=== PATIENT | female | born 1995 | race Caucasian/White ===

== ENCOUNTER 2021-07-13 14:30 | Emergency (ER) | payer OTHER ==
[2021-07-13] MEDS ORDERED: Ondansetron 4 MG Tab.DIS PO ONE (16:56)
--- NOTE | 2021-07-13 17:01 | EDM.PDOC ---
ED HPI GENERAL MEDICAL PROBLEM - General Chief Complaint: Gastrointestinal Problem Stated Complaint: COVID SYMPTOMS Time Seen by Provider: 07/13/21 16:07 Source of Information: Reports: Patient History Limitations: Reports: No Limitations - History of Present Illness INITIAL COMMENTS - FREE TEXT/NARRATIVE: 25-year-old female presents the emergency department today with complaints of 4- day history of fever, chills, nausea, vomiting, body aches, mild nonproductive cough and diarrhea. Patient states she has not taken any Tylenol or ibuprofen for the body aches. Denies any shortness of breath, chest pain or dyspnea. She has not had her Covid vaccine. States she smokes half pack a day for the past 15 years. - Related Data Allergies Allergy/AdvReac Type Severity Reaction Status Date / Time amoxicillin Allergy Hives Verified 07/13/21 17:03 hydrocodone Allergy Itching Verified 07/13/21 17:03 sulfamethoxazole Allergy Irritabilit Verified 07/13/21 17:03 [From Bactrim] y trimethoprim [From Bactrim] Allergy Irritabilit Verified 07/13/21 17:03 y Home Meds: Home Meds Ondansetron [Zofran ODT] 4 mg PO Q6H PRN #12 tab.dis 07/13/21 [Rx] Past Medical History Gastrointestinal History: Reports: GERD - Past Surgical History GI Surgical History: Reports: Other (See Below) Other GI Surgeries/Procedures: "Stretching" of her throat Female Surgical History: Reports: Breast Biopsy, Other (See Below) Other Female Surgeries/Procedures: Right Breast Lumpectomy Social & Family History - Tobacco Use Tobacco Use Status *Q: Current Every Day Tobacco User Years of Tobacco use: 8 Packs/Tins Daily: 3 - Caffeine Use Caffeine Use: Reports: None - Recreational Drug Use Recreational Drug Use: No ED ROS GENERAL - Review of Systems Review Of Systems: Comprehensive ROS is negative, except as noted in HPI. ED EXAM, GI/ABD - Physical Exam Exam: See Below Exam Limited By: No Limitations General Appearance: Alert, WD/WN, No Apparent Distress Eyes: Bilateral: Normal Appearance Ears: Normal External Exam, Hearing Grossly Normal Nose: Normal Inspection Throat/Mouth: Normal Inspection, Normal Lips, Normal Voice, No Airway Compromise Head: Atraumatic Neck: Normal Inspection, Supple Respiratory/Chest: No Respiratory Distress, Normal Breath Sounds, No Accessory Muscle Use, Chest Non-Tender, Crackles (Crackles noted to the right posterior lower lobe) Cardiovascular: Normal Peripheral Pulses, Regular Rate, Rhythm, No Edema, No Murmur GI/Abdominal Exam: Normal Bowel Sounds, Soft, Non-Tender, No Distention (Female) Exam: Deferred Rectal (Female) Exam: Deferred Back Exam: Normal Inspection Extremities: Normal Inspection, Normal Range of Motion, Non-Tender, No Pedal Edema, Normal Capillary Refill Neurological: Alert, Oriented, Normal Cognition Psychiatric: Normal Affect, Normal Mood Skin Exam: Warm, Dry, Intact, Normal Color, No Rash Lymphatic: No Adenopathy Course - Vital Signs Text/Narrative:: Physical exam reveals fine crackles noted to the right lower lobe. Patient is gagging into her emesis bag however she has not actively vomiting. Discussed p brittaney with patient she is likely positive for Covid. She states that she does not want to have any needle pokes unless her boyfriend can be in the room with her however I told her that this is not a possibility due to the fact that she is being tested for Covid. So she is refusing all further treatment. Will medicate her with Zofran ODT and once we have Covid results back she will be discharged home. Last Recorded V/S: Last Vital Signs Temp 98.9 F 07/13/21 16:20 Pulse 74 07/13/21 16:20 Resp 20 07/13/21 16:20 BP 93/74 07/13/21 16:20 Pulse Ox 100 07/13/21 16:20 - Orders/Labs/Meds Orders: Active Orders 24 hr Category Date Time Status C-REACTIVE PROTEIN [CHEM] Stat Lab 07/13/21 17:27 Ordered CBC WITH AUTO DIFF [HEME] Stat Lab 07/13/21 17:27 Ordered COMPREHENSIVE METABOLIC PN,CMP [CHEM] Stat Lab 07/13/21 17:27 Ordered D-DIMER QUANTITATIVE [COAG] Stat Lab 07/13/21 17:27 Ordered HCG QUANTITATIVE [CHEM] Stat Lab 07/13/21 17:29 Ordered MAGNESIUM [CHEM] Stat Lab 07/13/21 17:27 Ordered Sodium Chloride 0.9% [Saline Flush] Med 07/13/21 17:27 Active 10 ml FLUSH ASDIRECTED PRN Saline Lock Insert [OM.PC] Stat Oth 07/13/21 17:27 Ordered Medication Orders Sodium Chloride (Sodium Chloride 0.9% 10 Ml Syringe) 10 ml FLUSH ASDIRECTED PRN PRN Reason: Keep Vein Open Labs: Laboratory Tests 07/13/21 Range/Units 16:19 Influenza Type A RNA Negative (NEGATIVE) Influenza Type B RNA Negative (NEGATIVE) SARS-CoV-2 RNA ([facility]) Positive H (NEGATIVE) Meds: Medications Generic Name Dose Route Start Last Admin Trade Name Freq PRN Reason Stop Dose Admin Sodium Chloride 10 ml 07/13/21 17:27 Sodium Chloride 0.9% 10 Ml Syringe FLUSH ASDIRECTED PRN Keep Vein Open Discontinued Medications Generic Name Dose Route Start Last Admin Trade Name Freq PRN Reason Stop Dose Admin Ondansetron HCl 4 mg 07/13/21 16:56 07/13/21 17:03 Ondansetron 4 Mg Tab.Dis PO 07/13/21 16:57 4 mg ONETIME ONE Administration - Re-Assessments/Exams Free Text/Narrative Re-Assessment/Exam: 07/13/21 17:23 Patient's Covid test is positive. She will be discharged home with recommendations that she isolate for 10 days time. 07/13/21 17:26 Patient states she has changed her mind and would like to receive antibody treatment. Will collect labs. I spoke with the patient to provide information about Bamlanivimad for herself. I offered her the fax sheet for patients and caregivers for Bamlanivimad to read and review. I stated the therapy has been approved by an emergency use authorization process and has not fully been FDA reviewed or approved. I shared the potential risks from the therapy including risks/adverse reactions. I discussed there are other potential treatment options that are currently not FDA approved to treat COVID-19. Offered opportunity ask questions and all questions were answered. Patient voiced understanding and agreed to proceed with treatment for herself. 07/13/21 18:14 Nursing staff was unable to start an IV on the patient after 2 IV attempts. Patient is refusing any further IV attempts or lab draws. She request to be discharged home. Departure - Departure Time of Disposition: 18:14 Disposition: Home, Self-Care 01 Condition: Good Clinical Impression: COVID-19 - Discharge Information Prescriptions: Ondansetron [Zofran ODT] 4 mg PO Q6H PRN #12 tab.dis PRN Reason: Nausea/Vomiting Instructions: COVID-19: Quarantine vs. Isolation - [facility] (08/02/2020) Referrals: PCP,None [Primary Care Provider] - Forms: ED Department Discharge Additional Instructions: Were tested for Covid today and the test did return positive. Offered monoclonal antibodies however opted to decline due to fear of needle sticks and nursing staff being unsuccessful starting your IV. Recommend that you go home and rest and drink plenty of fluids. Eat small frequent meals. I have sent prescription for nausea medication called [place]. You may take this medication 1 tab placed under your tongue every 6 hours as needed for nausea and vomiting. Please allow 30 minutes prior to eating or drinking to allow the medication to take full effect. Sepsis Event Note (ED) - Evaluation Sepsis Screening Result: No Definite Risk - Focused Exam Vital Signs: Vital Signs Temp Pulse Resp BP Pulse Ox 07/13/21 16:20 98.9 F 74 20 93/74 100 - My Orders Last 24 Hours: My Active Orders 07/13/21 17:27 C-REACTIVE PROTEIN [CHEM] Stat CBC WITH AUTO DIFF [HEME] Stat COMPREHENSIVE METABOLIC PN,CMP [CHEM] Stat D-DIMER QUANTITATIVE [COAG] Stat MAGNESIUM [CHEM] Stat Sodium Chloride 0.9% [Saline Flush] 10 ml FLUSH ASDIRECTED PRN Saline Lock Insert [OM.PC] Stat 07/13/21 17:29 HCG QUANTITATIVE [CHEM] Stat - Assessment/Plan Last 24 Hours: My Active Orders 07/13/21 17:27 C-REACTIVE PROTEIN [CHEM] Stat CBC WITH AUTO DIFF [HEME] Stat COMPREHENSIVE METABOLIC PN,CMP [CHEM] Stat D-DIMER QUANTITATIVE [COAG] Stat MAGNESIUM [CHEM] Stat Sodium Chloride 0.9% [Saline Flush] 10 ml FLUSH ASDIRECTED PRN Saline Lock Insert [OM.PC] Stat 07/13/21 17:29 HCG QUANTITATIVE [CHEM] Stat
[2021-07-13 17:09] LABS: CORONAVIRUS COVID-19 NAA POSITIVE (NEGATIVE)
[2021-07-13] MEDS ORDERED: Sodium Chloride 0.9% 10 ML Syringe FLUSH PRN (17:27)
== END 2021-07-13 18:30 | disposition home or self-care (01) ==
LOC: JD.ED 14:30
DX: U07.1 COVID-19 (principal); Z72.0 Tobacco use; Z88.0 Allergy status to penicillin; Z88.5 Allergy status to narcotic agent; Z88.2 Allergy status to sulfonamides
CPT/HCPCS: 0240U; 99284; A9270

== ENCOUNTER 2022-08-29 06:54 | Day surgery (SDC) | payer BC, OTHER ==
[~2022-08-29 06:54] MED LIST: Lactated Ringers 1,000 ML IV SCH; Lidocaine 1%/Sod Bicarbonate in NS 8.4% 1 ML Syringe IDERM PRN; Sodium Chloride 0.9% 10 ML Syringe FLUSH SCH
[2022-08-29] MEDS ORDERED: Lidocaine 1% 30 ML SDV ONE (07:18)
[2022-08-29] MEDS ORDERED: Doxycycline Monohydrate 100 MG Cap PO SCH (07:30)
[2022-08-29] MEDS ORDERED: Propofol 200 MG/20 ML SDV ONE (07:36)
[2022-08-29] MEDS ORDERED: fentaNYL 100 MCG/2 ML SDV ONE (07:37)
[2022-08-29] MEDS ORDERED: Midazolam 1 MG/ML 2 ML SDV ONE (07:37)
[2022-08-29] MEDS ORDERED: Ondansetron 4 MG/2 ML SDV ONE (07:59)
[2022-08-29] MEDS ORDERED: Ketorolac 30 MG/ML SDV ONE (08:11)
[2022-08-29] MEDS ORDERED: Acetaminophen/Codeine 300-30 MG Tab PO SCH (08:30)
[2022-08-29] MEDS ORDERED: HYDROmorphone 0.5 MG/0.5 ML Syringe ONE (08:33)
== END 2022-08-29 10:05 | disposition home or self-care (01) ==
LOC: JD.SDS 06:54
PROVIDERS: ATTEND Obstetrics & Gynecology
DX: O73.1 Retained portions of placenta and membranes, without hemorrhage (principal); O02.1 Missed abortion; K21.9 Gastro-esophageal reflux disease without esophagitis; Z88.0 Allergy status to penicillin; Z88.2 Allergy status to sulfonamides; Z88.5 Allergy status to narcotic agent; Z88.7 Allergy status to serum and vaccine; Z87.891 Personal history of nicotine dependence; Z79.899 Other long term (current) drug therapy
CPT/HCPCS: 36415; 59820; 86850; 86900; 86901; A9270; J1170; J1885; J2250; J2405; J2704; J3010; J7120; 01965; J3490

== ENCOUNTER 2022-10-17 09:50 | Day surgery (SDC) | payer BC, MEDICAID ==
[~2022-10-17 09:50] MED LIST changes: +Sodium Chloride 0.9% 10 ML Syringe FLUSH PRN
[2022-10-17] MEDS ORDERED: Propofol 200 MG/20 ML SDV ONE (10:23)
[2022-10-17] MEDS ORDERED: Midazolam 1 MG/ML 2 ML SDV ONE (10:23)
[2022-10-17] MEDS ORDERED: Lidocaine 1% 5 ML VIAL ONE (10:23)
[2022-10-17] MEDS ORDERED: fentaNYL 100 MCG/2 ML SDV ONE (10:23)
== END 2022-10-17 12:05 | disposition home or self-care (01) ==
LOC: JD.SDS 09:50
PROVIDERS: ATTEND Surgery
DX: K29.50 Unspecified chronic gastritis without bleeding (principal); K21.00 Gastro-esophageal reflux disease with esophagitis, without bleeding; K22.89 Other specified disease of esophagus; F17.210 Nicotine dependence, cigarettes, uncomplicated; Z88.1 Allergy status to other antibiotic agents; Z88.0 Allergy status to penicillin; Z88.5 Allergy status to narcotic agent; Z88.7 Allergy status to serum and vaccine; Z87.19 Personal history of other diseases of the digestive system
CPT/HCPCS: 43239; 81025; J2250; J2704; J3010; J7120; 00731; J3490

== ENCOUNTER 2023-03-28 20:18 | Emergency (ER) | payer MEDICAID ==
[2023-03-28] MEDS ORDERED: LORazepam 2 MG/ML SDV SUBCUT ONE (20:51)
[2023-03-28] MEDS ORDERED: Lactated Ringers 1,000 ML IV SCH (21:00)
[2023-03-28 22:11] LABS: BASOPHILS ABSOLUTE AUTO 0.03 K/mm3 (0.01-0.08); BASOPHILS PERCENT AUTO 0.3 % (0.1-1.2); EOSINOPHILS ABSOLUTE AUTO 0.18 K/mm3 (0.04-0.36); EOSINOPHILS PERCENT AUTO 1.8 (0.7-5.8); HEMATOCRIT 39.1 % (34.1-44.9); HEMOGLOBIN 13.4 gm/dl (11.2-15.7); IMMATURE GRAN ABSOLUTE AUTO 0.02 K/mm3 (0.00-0.10); IMMATURE GRAN PERCENT AUTO 0.2 % (<=1.0); LYMPHOCYTES ABSOLUTE AUTO 2.43 K/mm3 (1.18-3.74); LYMPHOCYTES PERCENT AUTO 24.4 % (19.3-51.7); MEAN CORPUSCULAR HEMOGLOBIN 30.4 pg (25.6-32.2); MEAN CORPUSCULAR HGB CONC 34.3 g/dl (32.2-35.5); MEAN CORPUSCULAR VOLUME 88.7 fl (79.4-94.8); MEAN PLATELET VOLUME 10.5 fl (9.4-12.3); MONOCYTES ABSOLUTE AUTO 0.66 K/mm3 (0.24-0.36); MONOCYTES PERCENT AUTO 6.6 % (4.7-12.5); NEUTROPHILS ABSOLUTE AUTO 6.62 K/mm3 (1.56-6.13); NEUTROPHILS PERCENT AUTO 66.7 % (34.0-71.1); PLATELET COUNT,PLT 258 K/mm3 (182-369); RED BLOOD CELL COUNT 4.41 M/mm3 (3.98-5.22); WHITE BLOOD CELL COUNT,WBC 9.94 K/mm3 (3.98-10.04)
[2023-03-28 22:31] LABS: ALBUMIN 3.5 g/dl (3.4-5.0); ANION GAP 16.3 (5-15); BILIRUBIN TOTAL 0.4 mg/dL (0.2-1.0); BUN/CREATININE RATIO 10.9 (14-18); CALCIUM 9.4 mg/dL (8.5-10.1); CREATININE 1.1 mg/dL (0.55-1.02); EST CRCL DRUG DOSING (CG) 54.69 mL/min; MAGNESIUM 1.6 mg/dL (1.8-2.4); POTASSIUM,K 3.3 mEq/L (3.5-5.1); PROTEIN TOTAL,TP 6.9 g/dl (6.4-8.2)
[2023-03-29] MEDS ORDERED: Potassium Chloride 20 MEQ Tab.ER PO ONE (00:34)
[2023-03-29] MEDS ORDERED: Magnesium Oxide 400 MG Tab PO ONE (00:34)
[2023-03-29] MEDS ORDERED: Acetaminophen 325 MG Tab PO ONE (00:46)
== END 2023-03-29 01:00 | disposition home or self-care (01) ==
LOC: JD.ED 20:18
DX: R51.9 Headache, unspecified (principal); M62.838 Other muscle spasm; E66.9 Obesity, unspecified; Z68.41 Body mass index [BMI] 40.0-44.9, adult; Z88.0 Allergy status to penicillin; Z88.1 Allergy status to other antibiotic agents; Z88.2 Allergy status to sulfonamides; Z88.7 Allergy status to serum and vaccine; Z91.041 Radiographic dye allergy status
CPT/HCPCS: 36415; 70450; 80053; 83735; 84703; 85025; 96372; 99284; A9270; J2060